=== PATIENT | male | born 1975 | race Caucasian/White ===

== ENCOUNTER 2021-02-24 12:05 | Observation (INO) ==
[2021-02-24 12:43] LABS: Basophils % 0.2 %; Eosinophils # 0.2 K/mcL (0.0-0.6); Eosinophils % 1.8 %; Hematocrit 38.4 % (37.5-50.1); Hemoglobin 13.3 g/dL (12.9-16.9); Immature Granulocytes % 0.2 % (0-4); Lymphocytes # 1.5 K/mcL (0.6-4.6); Lymphocytes % 17.4 %; Mean Corpuscular HGB Conc 34.6 g/dL (31.6-35.5); Mean Corpuscular Hemoglobin 29.8 pg (28.0-33.3); Mean Corpuscular Volume 85.9 fL (83.0-100.0); Monocytes # 0.9 K/mcL (0.0-1.3); Monocytes % 10.2 %; Neutrophils # 5.9 K/mcL (1.6-8.9); Platelet Count 272 K/mcL (140-400); Red Blood Count 4.47 M/mcL (4.19-5.50); Red Cell Distribution Width 12.2 % (11.5-14.5); Segmented Neutrophils % 70.2 %; White Blood Count 8.4 K/mcL (4.3-11.1)
[2021-02-24 12:54] LABS: INR 1.3; Prothrombin Time 14.7 Seconds (9.4-12.1)
[2021-02-24 13:05] LABS: BUN/Creatinine Ratio 18 (6-26); Blood Urea Nitrogen 16 mg/dL (6-20); Calcium 8.6 mg/dL (8.6-10.3); Carbon Dioxide 22 mEq/L (23-29); Chloride 107 mEq/L (98-107); Glucose 104 mg/dL (70-105); Osmolality,Calculated 285 (280-300); Potassium 3.8 mEq/L (3.5-5.1); Sodium 137 mEq/L (136-145); eGFR For African Americans > 60 (> 60); eGFR For Non-African Americans > 60 (> 60)
[2021-02-24 13:11] LABS: Troponin I 0.26 ng/mL (< 0.04)
[2021-02-24] MEDS ORDERED: Isovue-370 500 ML BOTTLE IVP ONE (14:04)
[2021-02-24] MEDS ORDERED: *HR* Heparin 5,000 UNIT/ML VIAL IVP PRN (15:56)
[2021-02-24] MEDS ORDERED: *HR* Heparin 5,000 UNIT/ML VIAL IVP ONE (15:56)
[2021-02-24] MEDS ORDERED: GI Cocktail 40 ML EACH PO ONE (16:14)
[2021-02-24] MEDS ORDERED: Naloxone 0.4 MG/ML INJ IVP PRN (16:16)
[2021-02-24] MEDS ORDERED: Ondansetron 4 MG/2 ML VIAL IVP PRN (16:16)
[2021-02-24] MEDS ORDERED: Melatonin 3 MG TABLET PO PRN (16:16)
[2021-02-24] MEDS ORDERED: Perflutren Lipid Microsphere 1.3 ML in 0.9 % Sodium Chloride 8.7 ML IVP PRN (16:18)
[2021-02-24] MEDS: Heparin 25,000UNIT/250ML 1/2NS 25,000 UNIT/250 ML IV.SOLN IVC SCH (16:27)
[2021-02-24] MEDS: lisinopriL 5 MG TABLET PO SCH (17:27)
[2021-02-24 17:38] LABS: Adenovirus Not Detected (Not Detect); Bordetella Pertussis Not Detected (Not Detect); Chlamydophila pneumoniae Not Detected (Not Detect); Coronavirus 229E Not Detected (Not Detect); Coronavirus HKU1 Not Detected (Not Detect); Coronavirus NL63 Not Detected (Not Detect); Coronavirus OC43 Not Detected (Not Detect); Human Metapneumovirus Not Detected (Not Detect); Human Rhinovirus/Enterovirus Not Detected (Not Detect); Influenza A Subtype 2009 H1 Not Detected (Not Detect); Influenza B Not Detected (Not Detect); Mycoplasma pneumoniae Not Detected (Not Detect); Parainfluenza Virus 1 Not Detected (Not Detect); Parainfluenza Virus 2 Not Detected (Not Detect); Parainfluenza Virus 3 Not Detected (Not Detect); Parainfluenza Virus 4 Not Detected (Not Detect); Respiratory Syncytial Virus Not Detected (Not Detect); SARS-CoV-2 Not Detected (Not Detect)
[2021-02-24] MEDS: Acetaminophen 325 MG TABLET PO PRN (17:40)
[2021-02-24 17:48] LABS: Magnesium 2.3 mg/dL (1.6-2.6)
[2021-02-24] MEDS: *HR* Heparin 5,000 UNIT/ML VIAL IVP PRN (23:47)
[2021-02-25] MEDS: Acetaminophen 325 MG TABLET PO PRN (01:14)
[2021-02-25 05:43] LABS: Hemoglobin 13.7 g/dL (12.9-16.9); Mean Corpuscular HGB Conc 33.4 g/dL (31.6-35.5); Mean Corpuscular Hemoglobin 29.1 pg (28.0-33.3); Platelet Count 288 K/mcL (140-400); Red Blood Count 4.71 M/mcL (4.19-5.50); Red Cell Distribution Width 12.6 % (11.5-14.5); White Blood Count 7.1 K/mcL (4.3-11.1)
[2021-02-25 06:02] LABS: BUN/Creatinine Ratio 15 (6-26); Blood Urea Nitrogen 16 mg/dL (6-20); Calcium 9.2 mg/dL (8.6-10.3); Carbon Dioxide 24 mEq/L (23-29); Chloride 105 mEq/L (98-107); Chol/HDL Ratio 5.1 (0-4.9); Cholesterol 168 mg/dL (< 200); Glucose 104 mg/dL (70-105); HDL Cholesterol 33 mg/dL (40-59); LDL Cholesterol,Calculated 105 mg/dL (< 100); Magnesium 2.4 mg/dL (1.6-2.6); Osmolality,Calculated 285 (280-300); Phosphorous 3.8 mg/dL (2.7-4.5); Potassium 3.9 mEq/L (3.5-5.1); Sodium 137 mEq/L (136-145); Triglycerides 152 mg/dL (< 150); eGFR For African Americans > 60 (> 60); eGFR For Non-African Americans > 60 (> 60)
[2021-02-25] MEDS ORDERED: 0.9 % Sodium Chloride 1,000 ML IVC ONE (08:02)
[2021-02-25] MEDS: lisinopriL 5 MG TABLET PO SCH (08:32)
[2021-02-25] MEDS: Aspirin 81 MG TAB.CHEW PO SCH (08:39)
[2021-02-25] MEDS ORDERED: Perflutren Lipid Microsphere 1.3 ML in 0.9 % Sodium Chloride 8.7 ML IVP PRN (10:09)
[2021-02-25] MEDS: *HR* Heparin 5,000 UNIT/ML VIAL IVP PRN (13:18)
[2021-02-25] MEDS: Heparin 25,000UNIT/250ML 1/2NS 25,000 UNIT/250 ML IV.SOLN IVC SCH (13:19)
[2021-02-25] MEDS ORDERED: Nitroglycerin 1,000 MCG/5 ML VIAL IV ONE (14:05)
[2021-02-25] MEDS ORDERED: Heparin 1,000 UNITS/500 mL 500 ML ONE (14:05)
[2021-02-25] MEDS ORDERED: ISOVUE-370 200 ML INFUS..BTL ONE (14:05)
[2021-02-25] MEDS ORDERED: *HR* Heparin 10,000 UNIT/10 ML VIAL ONE ×2 (14:05→14:06)
[2021-02-25] MEDS ORDERED: 0.9 % Sodium Chloride 2,000 ML ONE (14:05)
[2021-02-25] MEDS ORDERED: *HR* Midazolam HCl 2 MG/2 ML VIAL ONE (14:24)
[2021-02-25] MEDS ORDERED: *HR* FentaNYL (PF) 100 MCG/2 ML VIAL ONE (14:24)
[2021-02-25 14:25] LABS: Estimated Average Glucose 114 mg/dl; Hemoglobin A1C 5.6 %
[2021-02-25] MEDS: carvediloL 6.25 MG TABLET PO SCH (17:12)
[2021-02-25] MEDS: *HR* Heparin 5,000 UNIT/ML VIAL SQ SCH (17:12)
[2021-02-26] MEDS: *HR* Heparin 5,000 UNIT/ML VIAL SQ SCH (05:15)
[2021-02-26 06:40] LABS: Basophils % 0.5 %; Eosinophils # 0.3 K/mcL (0.0-0.6); Eosinophils % 3.8 %; Hematocrit 41.8 % (37.5-50.1); Hemoglobin 13.8 g/dL (12.9-16.9); Immature Granulocytes % 0.3 % (0-4); Lymphocytes # 1.7 K/mcL (0.6-4.6); Lymphocytes % 26.3 %; Mean Corpuscular Hemoglobin 29.1 pg (28.0-33.3); Monocytes # 0.6 K/mcL (0.0-1.3); Monocytes % 8.4 %; Platelet Count 304 K/mcL (140-400); Red Blood Count 4.75 M/mcL (4.19-5.50); Red Cell Distribution Width 12.5 % (11.5-14.5); Segmented Neutrophils % 60.7 %; White Blood Count 6.5 K/mcL (4.3-11.1)
[2021-02-26 06:57] LABS: BUN/Creatinine Ratio 14 (6-26); Blood Urea Nitrogen 16 mg/dL (6-20); Calcium 9.2 mg/dL (8.6-10.3); Carbon Dioxide 25 mEq/L (23-29); Chloride 106 mEq/L (98-107); Glucose 100 mg/dL (70-105); Magnesium 2.3 mg/dL (1.6-2.6); Osmolality,Calculated 287 (280-300); Phosphorous 4.2 mg/dL (2.7-4.5); Potassium 4.3 mEq/L (3.5-5.1); Sodium 138 mEq/L (136-145); eGFR For African Americans > 60 (> 60); eGFR For Non-African Americans > 60 (> 60)
[2021-02-26 07:43] VITALS: BP 99/66
[2021-02-26] MEDS ORDERED: Spironolactone 25 MG TABLET PO SCH (09:00)
[2021-02-26] MEDS: carvediloL 6.25 MG TABLET PO SCH (10:17)
[2021-02-26] MEDS: Aspirin 81 MG TAB.CHEW PO SCH (10:17)
[2021-02-26] MEDS: lisinopriL 5 MG TABLET PO SCH (10:18)
== END 2021-02-26 11:28 | disposition home or self-care (01) ==
LOC: 2ANU 12:05 → EMEROOARM 12:05 → SUATTDRO 15:37 → 2ANU 16:52
PROVIDERS: ADMIT Internal Medicine; ATTEND Student in an Organized Health Care Education/Training Program